=== PATIENT | female | born 2000 | race Caucasian/White ===

== ENCOUNTER 2023-08-25 17:46 | Emergency (ER) | payer SELFPAY ==
[~2023-08-25] VITALS: Ht 154.9 cm; Wt 69.5 kg
[2023-08-25] MEDS ORDERED: CEFD300C3 PO (19:24)
[2023-08-25 19:45] VITALS: BP 118/81; PULSE 108; RESP 16; TEMP 98.8; O2SAT 99
== END 2023-08-25 19:47 | disposition home or self-care (01) ==
LOC: ER 17:47
DX: H66.91 Otitis media, unspecified, right ear (principal); Z87.81 Personal history of (healed) traumatic fracture; Z88.1 Allergy status to other antibiotic agents; Z88.8 Allergy status to other drugs, medicaments and biological substances; Z79.2 Long term (current) use of antibiotics
CPT/HCPCS: 99283